=== PATIENT | male | born 2000 | race American Indian/Alaskan Native ===

== ENCOUNTER 2022-12-11 12:25 | Emergency (ER) | payer OTHER ==
[~2022-12-11] VITALS: Ht 172.7 cm; Wt 78.7 kg
[2022-12-11] MEDS ORDERED: IBUP-1114 PO (12:30)
[2022-12-11] MEDS ORDERED: DOXY-443 PO (14:41)
[2022-12-11 15:04] VITALS: BP 120/67; TEMP 97.8; O2SAT 100
== END 2022-12-11 15:10 | disposition home or self-care (01) ==
LOC: M ED 12:25
DX: L02.31 Cutaneous abscess of buttock (principal); Z88.0 Allergy status to penicillin